=== PATIENT | female | born 1950 | race Caucasian/White ===

== ENCOUNTER 2016-10-13 09:42 | Outpatient (CLI) | payer OTHER ==
[~2016-10-13] VITALS: Ht 177.8 cm; Wt 90.9 kg
--- NOTE | ~2016-10-13 | HEMODYNAMI ---
PATIENT:DIANNA PATE MEDICAL RECORD: [id number] : 52 LOCATION:D.CAT ADMISSION DATE: 10/13/16 Generatedon:10/13/201612:40 Patient name: DIANNA PATE Patient #: [id number] SSN: : 1950 Date of study: Page: Of Hemodynamic Procedure Report Patient Data Patient Demographics Procedure consent was obtained First Name: DIANNA Gender: Female Last Name: RIO : 1950 Middle Initial: H Age: 66 year(s) Patient #: [id number] Race: Additional ID: [id number] Contact details [address]: [address] [place] [address] State: [place] City: [place] Zip code: [address] Past Medical History Allergies: No known allergies Admission Admission Data Admission Date: 10/13/2016 Admission Time: 9:42 Procedure Procedure Types Cath Procedure Diagnostic Procedure Cardioversion Procedure Description Procedure Staff Name Function Cary Puentes RN Nurse Hasmukh Moise RN Family Manager Kasey Pettit RT Monitor Kali Castillo MD Performing Physician Valeriy Yates GAS SUBSTATION OPERATOR Additional personnel Procedure Medications Medication Administration Route Dosage Oxygen NC 2 l/min Refer to Anesthesia Notes for Sedation Medications Hemodynamics Rest Pre Cath Intra NCS Post Cath Vital Signs Time Heart Resp SPO2 etCO2 HU8xbon Respiration NIBP (mmHg) Rhythm John n Sedation Rate (ipm) (%) (mmHg) (mmHg) (CO2) (ipm) Status Leve l (bpm) 12:27:01 125 29 95 13.3 0 21 121/110(119) NSR 0 ( 11) 10(A) , No pain 12:31:11 68 23 91 0.7 0.7 92/66(80) NSR 0 ( 11) 8(A) , No pain 12:35:10 68 22 91 34.9 0 7 92/62(73) NSR 0 ( 11) 8(A) , No pain 12:37:03 103 14 94 17.8 0 12 92/61(76) NSR 0 ( 11) 10(A) , No pain Medications Time Medication Route Dose Verified Delivered Reason Notes Effectiven ess by by 12:19:45 Oxygen NC 2 Anil Townsend used for l/min Bharathi Puentes RN procedure 12:19:50 Refer to Anil Townsend Anesthesia Bharathi Puentes RN Notes for Sedation Medications Procedure Log Time Note 12:04:53 Hasmukh Moise RN sent for patient. Start room use. 12:04:54 Time tracking: Regular hours 12:04:59 Plan of Care:Hemodynamics will remain stable., Cardiac rhythm will remain stable., Comfort level will be maintained., Respiratory function will remain adequate., Patient/ family verbilizes understanding of procedure., Procedure tolerated without complication., Recovers from procedure without complications.. 12:19:45 Oxygen 2 l/min NC was given by Cary Puentes RN; used for procedure; 12:19:50 Refer to Anesthesia Notes for Sedation Medications was given by Cary Puentes RN; ; 12:21:44 Patient received from Outpatients to [facility] 2 Alert and oriented. Tansferred to table in Supine position. 12:21:45 Warm blankets applied, and helen hugger turned on for patient comfort. 12:21:46 Correct patient and procedure confirmed by team. 12:21:47 Signed procedure consent form obtained from patient. 12:21:48 ECG and BP/O2 sat monitors applied to patient. 12:21:49 Full Disclosure recording started 12:24:01 H&P Date Dictated: 10/04/2016 Within 30 days and on chart., H&P Addendum completed by physician on day of procedure. (MUST COMPLETE FOR ALL OUTPATIENTS). 12:24:03 Pre-procedure instructions explained to patient. 12:24:03 Pre-op teaching completed and patient verbalized understanding. 12:24:04 Family in waiting room. 12:24:06 Patient NPO since Midnight. 12:24:12 Patient allergic to No known allergies 12:24:33 Is patient on blood thinner?Yes 12:24:37 ACC The patient was administered the following blood thiners within the last 24 hours: Xarelto 12:24:40 Patient diabetic? No. 12:24:44 ----Pre-sedation anethsthesia assessment.---- 12:25:05 See anesthesia record for anesthesia assessment. 12:25:12 Patient pain scale 0/10 ?. 12:25:18 IV patent on arrival in right hand with 0.9% NaCl at KVO. 12:25:22 Lab results completed and on chart. 12:25:24 Alarms reviewed by R. N. 12:25:25 Sharps counted by scrub and verified by R.N. 12:25:27 Final Timeout: patient, procedure, and site verified with staff and physician. All members of the team are in agreement. 12:25:46 Physical assessment completed. ASA score P 2 - A patient with mild systemic disease as per Kali Castillo MD. 12:25:49 Sedation plan: TIVA Propofol 12:25:59 Vital chart was started 12:29:04 Quick combo pads placed on patients chest and back. 12:29:06 Defibrillator synced and charged to 200 Joules. 12:29:18 Shock delivered. 12:29:35 Patient cardioverted to sinus bradycardia. 12:30:14 Ger present and monitoring patient for TIVA. 12:30:20 Procedure ended.(Physican Out) 12:33:11 Post procedure rhythm: sinus rhythm 12:33:13 Post procedure instruction explained to patient.Patient verbalizes understanding. 12:33:14 Patient needs reinforcement of post procedure teaching. 12:33:31 Quick Combo opened to sterile field. 12:33:54 Procedure and supply charges have been captured, reviewed, submitted and are correct. 12:33:56 See physician's report for complete and final results. 12:40:01 Vital chart was stopped 12:40:03 Report given to Post Procedure Room. 12:40:10 Patient transfered to Post Procedure Room with Stretcher. 12:40:18 End room use (Document Last) Device Usage Item Manufacture Quantity Catalog Hospital Part Current Minimal Lot# / Name Number Charge Number Stock Zeina Gandhi al# Code [employer]ase[employer] computer 1 [id number] Combo Signature Audit [place] Stage Time Signature Unsigned Intra-Procedure 10/13/2016 Kasey 12:40:30 PM Counts RT(R) Signatures Monitor : Kasey Signature : Counts RT Date : Time : [facility] [address] [place] [address]
[2016-10-13] MEDS ORDERED: XARELTO20 MG PO (10:39)
[2016-10-13] MEDS ORDERED: BETAPACE 120 M120 MG PO (10:40)
[2016-10-13] MEDS ORDERED: KLONOPIN0.5 MG PO (10:40)
[2016-10-13] MEDS ORDERED: FERROUS SULFAT325 MG PO (10:40)
[2016-10-13] MEDS ORDERED: MULTIPLE VITAMI1 TA1 PO (10:41)
[2016-10-13] MEDS ORDERED: MELATONIN 10 M1 EACH PO (10:41)
[2016-10-13] MEDS ORDERED: VITAMIN D5000 UNIT PO (10:42)
[2016-10-13 10:49] VITALS: BP 115/87; Ht 177.8 cm; Wt 90.9 kg
[2016-10-13 11:00] LABS: BASOPHILS 0.8 % (0.0-2.0); EOSINOPHILS 1.3 % (0-7); HEMATOCRIT 35.1 % (36.0-48.0); HEMOGLOBIN 9.2 g/dL (12-16); IMMATURE GRANULOCYTES 0.2 % (0-5); LYMPHOCYTES 25.6 % (15-50); MCHC 26.2 g/dL (31.0-37.0); MCV 71.6 fL (80.0-100.0); MONOCYTES 9.9 % (2-11); NEUTROPHILS 62.2 % (40-80); PLATELET COUNT 351 10x3/uL (130-400); RDW 25.8 % (11.5-14.5)
[2016-10-13 11:01] LABS: MCH 18.8 pg (26.0-34.0)
[2016-10-13 11:14] LABS: CALC OSMOLALITY 285 mosm/kg (275-300); CALCIUM 8.9 mg/dL (8.5-10.1); CARBON DIOXIDE 25.4 mmol/L (21.0-32.0); CHLORIDE - SERUM 110 mmol/L (98-107); CREATININE - SERUM 0.8 mg/dL (0.6-1.3); GLUCOSE 99 mg/dL (74-106); POTASSIUM - SERUM 4.1 mmol/L (3.5-5.1); SODIUM 144 mmol/L (136-145); UREA NITROGEN 11 mg/dL (7-18); eGFR NON AFRICAN AMERICAN 76 mL/min (90-120)
[2016-10-13 11:34] LABS: INR 1.78 (0.85-1.17); PROTIME 20.7 SECONDS (11.6-15.0)
--- NOTE | 2016-10-13 13:27 | NUR ---
1300 SITTING UP TALKING WITH FAMILY. NSR W PAC'S RATE 67. ROOM AIR WITH NO DISTRESS. PULSES PALP X4. FAMILY AT BEDSIDE. SIPPING SODA W NO NAUSEA.
--- NOTE | 2016-10-13 13:40 | NUR ---
PIV REMOVED FROM L/ARM WITH DRESSING APPLIED. PATIENT DENIED CHEST PAIN WITH VSS HR NSR RATE 66. DISCHARGE INSTRUCTIONS GONE OVER WITH PATIENT AND FAMILY LEFT VIA WC TO [facility] FOR FAMILY TO DRIVE HOME
--- NOTE | 2016-10-14 16:40 | OP ---
PATIENT NAME: DIANNA PATE MEDICAL RECORD: [id number] :52 LOCATION:D.CAT ADMISSION DATE: SURGEON: YULIA GONZALEZ MD DATE OF OPERATION: 10/13/2016 PROCEDURE: DC cardioversion. INDICATION: Atrial fibrillation, continuous heart rate, O2 saturation, blood pressure monitoring were all undertaken, all of which remains stable. She received IV conscious sedation per anesthesia. She received 1 shock at 250 joules restoring sinus rhythm. OVERALL IMPRESSION: Successful direct current cardioversion from atrial fibrillation to sinus rhythm. TRANSINT:[id number] Voice Confirmation ID: [id number] DOCUMENT ID: [id number] YULIA GONZALEZ MD at 1640 CC: [id number] DICTATION DATE: 10/13/16 1230 STAY CUTTER: 10/13/16 1304 DEP CLI 10/13/16 [place] [id number] [place] [address]
== END 2016-10-13 14:08 | disposition home or self-care (01) ==
LOC: D.CATH 09:42
PROVIDERS: Internal Medicine Interventional Cardiology
DX: I48.91 Unspecified atrial fibrillation (principal); K21.9 Gastro-esophageal reflux disease without esophagitis

== ENCOUNTER 2016-10-14 14:02 | Inpatient (IN) | payer OTHER ==
[~2016-10-14] VITALS: Ht 170.2 cm; Wt 81.8 kg
[~2016-10-14 14:02] MED LIST: BETAPACE 120 M120 MG PO; FERROUS SULFAT325 MG PO; KLONOPIN0.5 MG PO; MELATONIN 10 M1 EACH PO; MULTIPLE VITAMI1 TA1 PO; VITAMIN D5000 UNIT PO; XARELTO20 MG PO
--- NOTE | 2016-10-14 14:30 | NUR ---
DR POOLE HERE. TALKING TO POWER OF ATTORNEYS. WANTING PT TO BE TERMINALLY EXTUBATED AND FOLLOW LIVING WILL.
--- NOTE | 2016-10-14 14:35 | NUR ---
REC'D VIA STRETCHER FROM [employer] PERSONNEL, INTUBATED WITH ETT SECURED, VENT SET AT 80% FIO2, SAT 95 %, C COLLAR ON TO PROTECT LEFT EJ, DOPAMINE INFUSING AT 5 MCG/KG, MIN, NS INFUSING AT 100 CC/HR, PUPILS PINPOINT AND FIXED, UNRESPONSIVE, ROSEANNA AT 3, GALEANA TO GRAVITY WITH BLOODY DRAINAGE TO BAG, +4 PITTING EDEMA TO LOWER EXTREMITIES, INCONTINENT OF LARGE DIARRHEA STOOL, SKINCARE AND LINEN CHANGE COMPLETED, VSS, ASSESSMENT COMPLETED PER FLOWSHEET, PAGED DR. GONZALEZ, AND CONSULT PLACED TO DR KATZ
[2016-10-14 14:45] VITALS: BP 106/62
--- NOTE | 2016-10-14 14:45 | NUR ---
DR POOLE HERE FOR EVAL NEW ORDERS GIVEM, RESTRAINTS APPLIED PER PROTOCAL, ORDER GIVEN TO D/C DOPAMINE GTT
[2016-10-14 15:00] VITALS: BP 112/76
[2016-10-14 16:00] VITALS: BP 87/58
--- NOTE | 2016-10-14 16:00 | NUR ---
DR POOLE CALLED, INSTRUCT "POAS WANT US TO FOLLOW PT LIVING WILL. ORDER GRANTED. TERMINAL EXTUBATION ORDER PLACED. DR STERLING FERRARA.
[2016-10-14 16:29] VITALS: BP 114/70; Ht 170.2 cm; Wt 81.8 kg
--- NOTE | 2016-10-14 16:44 | NUR ---
SPOKE WITH MARNIE AT [facility]. COORDINATOR PAGED OUT.
--- NOTE | 2016-10-14 16:55 | NUR ---
DR KATZ RETURN CALL INSTRUCT IF NEEDED CAN CALL.
--- NOTE | 2016-10-14 16:57 | NUR ---
SPOKE WITH JERILYN AT [facility]. WILL RULE OUT FOR AGE. REQUESTS CALL BACK WITH "CARDIAC "
[2016-10-14 17:00] VITALS: BP 85/55
--- NOTE | 2016-10-14 17:00 | NUR ---
TERMINAL EXTUBATION DONE. O2 ON AT 2 LITERS NC.
--- NOTE | 2016-10-14 19:45 | NUR ---
HOSPICE HERE EVALUATING PATIENT. WAITING NEW ORDERS.
--- NOTE | 2016-10-14 21:30 | NUR ---
PATIENT HAS , DR LESLIE AND DR POOLE NOTIFIED, DR LESLIE PRONOUNCED TIME OF . FAMILY NEEDS BEING ATTENDED TO.
--- NOTE | 2016-10-14 22:57 | NUR ---
HOME HAS ARRIVED, SPEAKING WITH FAMILY AT THE MOMENT.
--- NOTE | 2016-10-14 23:25 | NUR ---
HOME HAS LEFT WITH PATIENT AT THIS TIME.
--- NOTE | 2016-10-18 16:49 | NUR ---
Per CMS protocol, restraint report logged into data base.
--- NOTE | 2016-10-19 14:16 | HP ---
PATIENT: DIANNA PATE MEDICAL RECORD: [id number] ACCOUNT: [id number] LOCATION:[facility] D.2301 : 52 ADMISSION DATE: 10/14/16 HISTORY AND PHYSICAL EXAMINATION HISTORY OF PRESENT ILLNESS: A 66-year-old lady with a history of atrial fibrillation, status post cardioversion. Recently, she was found down at home, was cardioverted times 2 at home, rhythm has been sinus. She has been on Xarelto. Other history is obtained by family and power of field pipe lines supervisor present currently. She was transferred here for further evaluation. PAST MEDICAL HISTORY: 1. History of gastric bypass. 2. Hypertension. ALLERGIES: None known. MEDICATIONS: Include sotalol 120 b.i.d., Xarelto 20 every day, iron supplementation and melatonin q.h.s. p.r.n. SOCIAL HISTORY: Unobtainable. REVIEW OF SYSTEMS: Unobtainable. PHYSICAL EXAMINATION: GENERAL: Sedated on the vent. VITAL SIGNS: Blood pressure 112/64, pulse 70 and regular. HEENT: Normocephalic, atraumatic. NECK: No bruits noted. HEART: Regular without hearing extrasystoles. LUNGS: Fair air excursion. ABDOMEN: Soft, nontender. EXTREMITIES: Pulses 2+ with no edema. IMPRESSION: Cardiac arrest. A long discussion with the power of field pipe lines supervisor who is here. Apparently down for 15 minutes at home, not very confident of neurologic recovery. We will plan on CT of the head with contrast. Call Dr. Edwards for ventilator management. If she does not improve fairly rapidly, after discussing with the family, we would plan for terminal extubation. TRANSINT:[id number] Voice Confirmation ID: [id number] DOCUMENT ID: [id number] POOJA POOLE MD at 1416 CC: [id number] DICTATION DATE: 10/14/16 1518 MARTIAL ARTS INSTRUCTOR: 10/14/16 1548 DIS IN 10/14/16 [place] [id number] [place] [id number]
== END 2016-10-14 23:38 | DRG 298 ==
LOC: D.ICU 14:02
PROVIDERS: ADMIT Internal Medicine Interventional Cardiology
PROC: 5A1935Z Respiratory Ventilation, Less than 24 Consecutive Hours (ICD-10-PCS; principal; 2016-10-14)
DX: I46.9 Cardiac arrest, cause unspecified (principal); I48.91 Unspecified atrial fibrillation; Z79.01 Long term (current) use of anticoagulants; I10 Essential (primary) hypertension